=== PATIENT | female | born 1995 | race Hispanic/Latino ===

== ENCOUNTER 2020-08-03 19:00 | Inpatient (IN) | payer OTHER ==
[2020-08-03] MEDS ORDERED: Diphenoxylate HCl/Atropine Tablet PO PRN (22:10)
[2020-08-03] MEDS ORDERED: Misoprostol 200 MCG TAB PR PRN (22:10)
[2020-08-03] MEDS ORDERED: Promethazine HCl 25 MG/ML VIAL IM PRN (22:10)
[2020-08-03] MEDS ORDERED: Ondansetron PF 4 MG/2 ML Vial IVP PRN (22:10)
[2020-08-03] MEDS ORDERED: Lidocaine 1% (PF) 30 ML VIAL SC PRN (22:10)
[2020-08-03] MEDS ORDERED: Carboprost 250 MCG/ML AMP IM PRN (22:10)
[2020-08-03] MEDS ORDERED: Butorphanol Tartrate 1 MG/ML VIAL SLOW IVP PRN (22:10)
[2020-08-03] MEDS ORDERED: Methylergonovine 0.2 MG/ML VIAL IM PRN (22:10)
[2020-08-03] MEDS ORDERED: NS / Oxytocin 40 units/1000ml 1,000 ML IV PRN (22:10)
[2020-08-03] MEDS ORDERED: hydrALAZINE 20 MG/ML VIAL SLOW IVP PRN (22:10)
[2020-08-03] MEDS ORDERED: HYDROcodone/Acetaminophen 5/325 mg Tablet PO PRN (22:10)
[2020-08-03] MEDS ORDERED: Acetaminophen 500 MG TAB PO PRN (22:10)
[2020-08-03] MEDS ORDERED: Ibuprofen 800 MG TAB PO PRN (22:10)
[2020-08-03 22:14] VITALS: BMI 34.9
[2020-08-03 23:08] LABS: Hemoglobin 12.8 g/dL (12.0-15.5); Mean Corpuscular Hemoglobin 29.4 pg (27.0-33.0); Mean Corpuscular Volume 86.4 fl (81.6-98.3); Mean Platelet Volume 11.3 fl (7.4-10.4); Platelet Count 227 10x3/uL (150-450); RBC Distribution Width 12.9 % (11.5-14.5); Red Blood Cell (RBC) Count 4.35 10x6/uL (3.90-5.03); White Blood Cell (WBC) Count 7.5 10x3/uL (3.5-10.5)
[2020-08-03] MEDS: Misoprostol 100 MCG TAB PO SCH (23:26)
[2020-08-03] MEDS: Lactated Ringer's 1,000 ML IV SCH (23:27)
[2020-08-03 23:38] LABS: Syphilis Antibody Nonreactive (Nonreactive); Syphilis Antibody Index 0.14 S/CO (<1.00 Non-Reactive)
[2020-08-03 23:39] LABS: Hep B Surf Ag Non-Reactive S/CO (NonReactive)
[2020-08-03 23:40] LABS: HBSAg Index 0.18 S/CO (0-0.99)
[2020-08-04] MEDS: Misoprostol 100 MCG TAB PO SCH ×2 (03:34→18:00)
[2020-08-04] MEDS ORDERED: NS w/ Oxytocin 30 units 500 ML ONE (08:35)
[2020-08-04] MEDS: Lactated Ringer's 1,000 ML IV SCH ×2 (08:51→20:01)
[2020-08-04] MEDS ORDERED: NS w/ Oxytocin 30 units 500 ML IVPB PRN (09:15)
[2020-08-04] MEDS ORDERED: NS w/ Oxytocin 30 units 500 ML IVPB SCH ×2 (09:15)
[2020-08-04] MEDS ORDERED: Fentanyl 4 mcg/Bup 0.1% Cadd 100 ML ONE (09:55)
[2020-08-04] MEDS ORDERED: Acetaminophen 325 MG TAB PO PRN (13:44)
[2020-08-04] MEDS ORDERED: Promethazine HCl 25 MG/ML VIAL IM PRN (13:44)
[2020-08-04] MEDS ORDERED: Eucerin (Mineral Oil/Petrolatum,White) 30 gm Jar TOP PRN (13:44)
[2020-08-04] MEDS ORDERED: ePHEDrine 50 MG/ML VIAL SLOW IVP PRN (13:44)
[2020-08-04] MEDS ORDERED: Lactated Ringer's 500 ML IV PRN (13:44)
[2020-08-04] MEDS ORDERED: diphenhydrAMINE 50 MG/ML VIAL IVP PRN (13:44)
[2020-08-04] MEDS ORDERED: Ondansetron PF 4 MG/2 ML Vial IVP PRN ×2 (13:44→17:36)
[2020-08-04] MEDS ORDERED: Naloxone HCl 0.4 mg/ml Vial IVP PRN ×2 (13:44)
[2020-08-04] MEDS ORDERED: Communication Order-Pharmacy FS SCH (13:45)
[2020-08-04] MEDS ORDERED: Fentanyl 4 mcg/Bupivacaine 0.1% Cassette 100 ML EPIDURAL SCH (13:45)
[2020-08-04] MEDS ORDERED: Diphenoxylate HCl/Atropine Tablet PO SCH (16:45)
[2020-08-04] MEDS ORDERED: HYDROcodone/Acetaminophen 5/325 mg Tablet PO PRN ×2 (17:36)
[2020-08-04] MEDS ORDERED: Adacel (T-DAP) 0.5 ML SYRINGE IM ONE (17:36)
[2020-08-04] MEDS ORDERED: Preparation H Ointment 28 GM TUBE PR PRN (17:36)
[2020-08-04] MEDS ORDERED: Benzocaine-Menthol 82.5 ML CAN TOP PRN (17:36)
[2020-08-04] MEDS ORDERED: hydrALAZINE 20 MG/ML VIAL SLOW IVP PRN (17:36)
[2020-08-04] MEDS ORDERED: diphenhydrAMINE 25 MG CAP PO PRN (17:36)
[2020-08-04] MEDS ORDERED: Lanolin Ointment 7 GM TUBE TOP PRN (17:36)
[2020-08-04] MEDS ORDERED: NS / Oxytocin 40 units/1000ml 1,000 ML IV SCH (17:36)
[2020-08-04] MEDS ORDERED: Bisacodyl 10 MG SUPP PR PRN (17:36)
[2020-08-04] MEDS ORDERED: Milk Of Magnesia 30 ML UDCUP PO PRN (17:36)
[2020-08-04] MEDS: Ferrous Sulfate 325 MG TAB PO SCH (18:01)
[2020-08-04] MEDS: Ibuprofen 800 MG TAB PO SCH ×2 (18:23→21:04)
[2020-08-04] MEDS: Docusate Calcium (SURFAK) 240 MG CAP PO SCH (21:04)
[2020-08-05 06:02] VITALS: BP 108/70
[2020-08-05] MEDS: Ibuprofen 800 MG TAB PO SCH ×2 (06:02→13:44)
[2020-08-05] MEDS: Ferrous Sulfate 325 MG TAB PO SCH (07:10)
[2020-08-05 07:40] VITALS: TEMP 98.1
[2020-08-05] MEDS: Docusate Calcium (SURFAK) 240 MG CAP PO SCH (07:58)
[2020-08-05] MEDS ORDERED: Prenatal Vitamin 1 TAB PO SCH (09:00)
== END 2020-08-05 15:55 | disposition home or self-care (01) | DRG 807 ==
LOC: EDSTATUS 19:00 → CSHLD 20:02 → CSHPP 08-04 17:20
PROVIDERS: ADMIT Family Medicine; ATTEND Family Medicine
PROC: 10E0XZZ Delivery of Products of Conception, External Approach (ICD-10-PCS; principal; 2020-08-04)
PROC: 0HQ9XZZ Repair Perineum Skin, External Approach (ICD-10-PCS; 2020-08-04)
PROC: 10907ZC Drainage of Amniotic Fluid, Therapeutic from Products of Conception, Via Natural or Artificial Opening (ICD-10-PCS; 2020-08-04)
DX: O70.0 First degree perineal laceration during delivery (principal); Z37.0 Single live birth; Z3A.39 39 weeks gestation of pregnancy
CPT/HCPCS: 36415; 51702; 85027; 86780; 86850; 86900; 86901; 87340; J2210; J2405; J2590; J3490